=== PATIENT | female | born 1975 | race Caucasian/White ===

== ENCOUNTER 2021-04-07 15:00 | Outpatient (CLI) | payer OTHER, SELFPAY ==
--- NOTE | ~2021-04-07 | MM_ITS ---
EXAMINATION: MM screening jaret BI w radha HISTORY: Screening mammogram, family history of breast cancer in her mother. TECHNIQUE: Craniocaudal and mediolateral oblique 3-D tomosynthesis images were obtained and synthetic 2-D images were generated. CAD analysis was submitted and interpreted. COMPARISON: 04/01/2018, 09/25/2017, 03/22/2017, 03/08/2017 BREAST PARENCHYMAL COMPOSITION: The breasts are extremely dense, which lowers the sensitivity of mamm ography. FINDINGS: There are multiple similar appearing bilateral breast masses, previously characterized as c ysts. There is no evidence of suspicious mass, calcification, or architectural distortion to suggest malignancy in either breast. There has been no suspicious interval change. IMPRESSION: 1. No mammographic evidence of malignancy. 2. Recommend routine screening mammography in one year. BI-RADS Category 2: Benign finding(s). Reviewed, dictated and finalized at location A.
== END 2021-04-07 15:01 | disposition home or self-care (01) ==
LOC: ANHIMG 15:03
PROVIDERS: PCP Internal Medicine; Visit Provider Obstetrics & Gynecology
DX: Z12.31 Encounter for screening mammogram for malignant neoplasm of breast (principal)
CPT/HCPCS: 77063; 77067

== ENCOUNTER 2022-02-25 08:44 | Emergency (ER) | payer OTHER, SELFPAY ==
--- NOTE | 2022-02-25 08:48 | ED.SKABFB ---
HPI - Skin/Abscess/Foreign Bdy General Chief complaint: Extremity Problem,Nontraumatic Stated complaint: Skin Sore/Finger Time Seen by Provider: 02/25/22 08:48 Source: patient and RN notes reviewed History of Present Illness HPI narrative: Patient is a 46-year-old female who presents the urgent care with complaints of a skin sore to the nailbed of the left ring finger. Patient states has been there approximately 2 days. Denies of any injury. States that she has been soaking it in Epson salt. Denies any fevers. No other acute complaints. No acute distress noted. Patient aware of the plan of care. Some parts of this dictation were generated by voice recognition software and may contain typographical and/or grammatical inaccuracies. Related Data Home Medications Medication Instructions Recorded Confirmed fluoxetine 40 mg capsule cap 02/25/22 Allergies Allergy/AdvReac Type Severity Reaction Status Date / Time No Known Allergies Allergy Unknown Verified 02/25/22 08:58 Review of Systems Review of Systems: CONSTITUTIONAL: Denies fever, chills, or sweats. EYES: Denies visual changes, redness, or discharge. ENT: Denies rhinorrhea, congestion, sore throat, or otalgia. CARDIOVASCULAR: Denies chest pain, palpitations, or edema. RESPIRATORY: Denies cough or dyspnea. GASTROINTESTINAL: Denies abdominal pain, nausea, vomiting, or diarrhea. GENITOURINARY: Denies dysuria or hematuria. SKIN: Reports of a skin sore to the left ring finger MUSCULOSKELETAL: Denies back pain, joint pain, or myalgia. NEUROLOGIC: Denies headache, numbness, or weakness. All other systems reviewed are negative, except as documented in HPI. [facility] Family History Family History (Updated 03/10/16 @ 23:19 by DOCTOR UNKNOWN) Father Family history of diabetes mellitus in first degree relative Social History Social History Smoking status: Never smoker Alcohol intake: current Comments At the time of my signature, I reviewed and agree with the nursing past medical, surgical, social, and family history. There is no relevant family history pertinent to the patient complaint. Exam Narrative: GENERAL: This is a well-nourished, well-developed patient, in no apparent distress. HEAD: normocephalic, atraumatic. EYES: PERRL. Sclera clear/white. Vision is grossly intact. EARS: External ears normal NOSE: External nose normal with no obvious nasal discharge, nares without redness, no rhinorrhea. THROAT: Mucous membranes moist, posterior pharynx clear. NECK: Neck supple SKIN: Edematous, erythemic tender paronychia to the nailbed and the ulnar aspect of the left ring finger NEURO: awake, alert, and oriented to person, place and time. There were no obvious focal neurologic abnormalities. EXTREMITIES: No clubbing, cyanosis, or edema. BACK: Nontender without deformity or crepitance. No flank tenderness. Course Course Level of Care: Express Care Visit Vital Signs Vital signs: Vital Signs Temperature 98.4 F 02/25/22 08:50 Pulse Rate 83 02/25/22 08:50 Respiratory Rate 16 02/25/22 08:50 Blood Pressure 108/80 02/25/22 08:50 Pulse Oximetry 99 02/25/22 08:50 Oxygen Delivery Room Air 02/25/22 08:50 Temperature 98.4 F 02/25/22 08:50 Pulse Rate 83 02/25/22 08:50 Respiratory Rate 16 02/25/22 08:50 Blood Pressure 108/80 02/25/22 08:50 Pulse Oximetry 99 02/25/22 08:50 Oxygen Delivery Room Air 02/25/22 08:50 Reviewed Procedures Other Procedure Procedure 1: Other Procedure: Edematous/erythemic paronychia to the left ring finger near the base of the nailbed and the ulnar aspect. Incised with an 18-gauge needle after Betadine wash. Cleanse post procedure with Technicare normal saline. Added Neosporin and tube gauze. Patient tolerated well. Procedure successful with yellow serosanguineous and bloody drainage. MDM - Skin/Abscess/Foreign Bdy MDM Narrative Medical decision making narrative: Advised the pa
[2022-02-25 08:50] VITALS: BP 108/80; PULSE 83; RESP 16; TEMP 36.9; O2SAT 99
== END 2022-02-25 09:43 | disposition home or self-care (01) ==
PROVIDERS: Emergency Provider Nurse Practitioner Family; PCP Internal Medicine
DX: L03.012 Cellulitis of left finger (principal)
CPT/HCPCS: 10060; 99213; G0463

== ENCOUNTER 2022-11-21 14:12 | Outpatient (CLI) | payer OTHER, SELFPAY ==
--- NOTE | ~2022-11-21 | MM_ITS ---
EXAMINATION: MM screening jaret BI w radha HISTORY: Screening mammogram TECHNIQUE: Craniocaudal and mediolateral oblique 3-D tomosynthesis images were obtained and synthetic 2-D images were generated. Bilateral rotated lateral CC views. CAD analysis was submitted and interp reted. COMPARISON: 04/07/2021 bilateral screening mammogram 04/01/2018 diagnostic mammography and bilateral complete breast ultrasound examination BREAST PARENCHYMAL COMPOSITION: The breasts are extremely dense, which lowers the sensitivity of mamm ography. FINDINGS: Occasional benign calcifications. There is no evidence of suspicious mass, calcification, o r architectural distortion to suggest malignancy in either breast. There has been no suspicious inter mara change. IMPRESSION: 1. No mammographic evidence of malignancy. 2. Recommend routine screening mammography in one year. Reviewed, dictated and finalized at location A.
== END 2022-11-21 14:13 | disposition home or self-care (01) ==
PROVIDERS: PCP Internal Medicine; Visit Provider Obstetrics & Gynecology
DX: Z12.31 Encounter for screening mammogram for malignant neoplasm of breast (principal)
CPT/HCPCS: 77063; 77067

== ENCOUNTER 2023-10-06 16:04 | Emergency (ER) | payer OTHER, SELFPAY ==
[2023-10-06 16:08] VITALS: BP 101/69; PULSE 87; RESP 20; TEMP 36.6; O2SAT 98
--- NOTE | 2023-10-06 16:17 | ED.URI ---
HPI - URI/Sore Throat General Chief Complaint: Upper Respiratory Infection Stated Complaint: throat/ears/head Time Seen by Provider: 10/06/23 16:17 Source: patient, RN notes reviewed and old records reviewed Mode of arrival: ambulatory Limitations: no limitations History of Present Illness HPI Narrative: 48 year old female who presents to [facility] with complaints of sinus congestion, sore throat, bilateral ear pain, and headache for the past few days. Patient reports that she has not had any known fevers, chills or sweat, or any body ache. Patient reports no shortness of breath, no diarrhea or any nausea or vomiting. Patient has not taken any OTC medications for her symptoms. MD elicited complaint: sore throat ( ear pain, headache), rhinorrhea, nasal congestion and other (headache) Pertinent past history: other (tonsillectomy) Onset (ago): day(s) (2) Pain scale (0-10): 5 Able to tolerate fluids by mouth: Yes Treatments prior to arrival: none Related Data Allergies Allergy/AdvReac Type Severity Reaction Status Date / Time No Known Allergies Allergy Unknown Verified 02/25/22 08:58 Review of Systems Review of Systems: CONSTITUTIONAL: Denies malaise, chills, sweats, or fever. EYES: Denies visual changes, redness, or discharge. ENT: Reports rhinorrhea, congestion, sinus pain,bilateral otalgia and sore throat. CARDIOVASCULAR: Denies chest pain, palpitations, or edema. RESPIRATORY: Reports no cough.? Denies dyspnea. GASTROINTESTINAL: Denies abdominal pain, nausea, vomiting, diarrhea SKIN: Denies rash or itching. MUSCULOSKELETAL: Denies myalgia. NEUROLOGIC: Reports headache. All systems reviewed & are unremarkable except as noted in HPI and below PMFSH Past Medical History Medical History (Updated 10/08/23 @ 10:28 by Sera Flores NP) Fracture of left foot Surgical History Surgical History (Updated 10/08/23 @ 10:28 by Sera Flores NP) H/O right knee surgery History of endometrial ablation History of tubal ligation Hx of tonsillectomy Family History Family History (Updated 03/10/16 @ 23:19 by DOCTOR UNKNOWN) Father Family history of diabetes mellitus in first degree relative Social History Social History (Updated 10/08/23 @ 10:29 by Sera Flores NP) Smoking status: Never smoker Alcohol intake: current Alcohol use details: social Substance use type: does not use Living arrangements: with family Gender identity (if verbalized by the patient): Female Comments At time of signature, agree with nursing past medical, surgical, social and family history. There is no relevant family history pertinent to the presenting complaint Exam Narrative: GENERAL: Well-appearing, well-nourished, and in no acute distress. HEAD: Normocephalic EYES: PERRLA, conjunctivae clear ENT: Nares clear, turbinates edematous and erythematous, clear discharge, headache discomfort voiced.. Mucous membranes moist. TM pearly caldera with dull light reflex bilaterally; no tragal tenderness. Oropharynx erythematous without lesions. Tonsils not present, throat without exudate, no drooling, no hoarseness, no trismus, uvula midline. NECK: Supple. No lymphadenopathy CHEST: Clear to auscultation, breath sounds equal. No wheezing, rhonchi, rales, or stridor. No respiratory distress, speaks in full sentences.no cough noted SAO2 98% on room air HEART: Regular rate and rhythm. No murmur heard. SKIN: Warm, dry, no rash. NEURO: Alert and oriented x3. PSYCH: Normal mood and affect Course Course Emergency Course: Patient is aware of diagnosis, understands and agrees to treatment plan.? Anticipatory guidance given.? Patient agrees to follow-up as directed and is aware of reasons to seek care at the emergency department. Portions of this record may have been created with voice recognition software Level of Care: Express Care Visit Vital Signs Vital signs: Vital Signs Temperature
== END 2023-10-06 16:47 | disposition home or self-care (01) ==
PROVIDERS: Emergency Provider Registered Nurse; PCP Family Medicine
DX: J06.9 Acute upper respiratory infection, unspecified (principal)
CPT/HCPCS: 87081; 87880; 99213; G0463

== ENCOUNTER 2024-02-18 07:18 | Outpatient (CLI) | payer OTHER, SELFPAY ==
--- NOTE | ~2024-02-18 | MM_ITS ---
EXAMINATION: MM screening jaret BI w radha HISTORY: Screening TECHNIQUE: Craniocaudal and mediolateral oblique 3-D tomosynthesis images were obtained and synthetic 2-D images were generated. CAD analysis was submitted and interpreted. COMPARISON: Comparison to multiple prior studies sequentially, with oldest reviewed study dated 03/08. BREAST PARENCHYMAL COMPOSITION: Dense: The breasts are extremely dense, which lowers the sensitivity of mammography. FINDINGS: The right breast is stable without evidence for malignancy. There are developing masses in the upper aspect of the left breast. IMPRESSION: 1. Developing left breast masses. 2. Additional mammographic views and possible breast ultrasound are recommended. BI-RADS Category 0: Incomplete: Needs additional imaging evaluation. Reviewed, dictated and finalized at location B. IMPRESSION: 1. Developing left breast masses. 2. Additional mammographic views and possible breast ultrasound are recommended . BI-RADS Category 0: Incomplete: Needs additional imaging evaluation.
== END 2024-02-18 07:19 | disposition home or self-care (01) ==
LOC: ANHIMG 07:22
PROVIDERS: Visit Provider Obstetrics & Gynecology
DX: Z12.31 Encounter for screening mammogram for malignant neoplasm of breast (principal); N63.20 Unspecified lump in the left breast, unspecified quadrant
CPT/HCPCS: 77063; 77067

== ENCOUNTER 2024-03-06 11:28 | Outpatient (CLI) | payer OTHER, SELFPAY ==
--- NOTE | ~2024-03-06 | MMUS_ITS ---
EXAMINATION: MM diagnostic jaret LT w radha, US breast LT complete HISTORY: Follow-up left breast asymmetries TECHNIQUE: Additional 3-D tomosynthesis images of the left breast were performed and synthetic 2-D im ages were generated. CAD analysis was submitted and interpreted. High resolution complete left breast ultrasound was performed. COMPARISON: Comparison to multiple prior studies sequentially, with oldest reviewed study dated 04/01. BREAST PARENCHYMAL COMPOSITION: Dense: The breasts are extremely dense, which lowers the sensitivity of mammography. FINDINGS: MAMMOGRAPHIC FINDINGS: There are multiple obscured masses predominantly located superiorly in the left breast. There is no a rchitectural distortion or suspicious calcifications. ULTRASOUND: Complete US of all 4 quadrants of the left breast and retroareolar region was reviewed. At 12:00, 1 cm from the nipple, there is a oval septated cyst measuring 7 mm. At 12:00 near the nippl e there is a 2.2 cm simple cyst. At 12:30, 3 cm from the nipple there is a 2.2 cm simple cyst. At 1:0 0, 3 cm from the nipple there is an oval hypoechoic parallel oriented mass measuring 4 mm without int ernal vascularity or posterior features, likely benign. At 5:00 near the nipple there is a small cyst . At 7:00, 5 cm from the nipple, there is an oval hypoechoic 5 mm mass with parallel orientation, no posterior features and no internal vascularity, likely benign. At 7:00, 2 cm from the nipple, there i s a cluster of cysts measuring up to 1 cm in aggregate. At T10-11 o'clock, 4 cm from the nipple there is a septated cyst measuring up to 4.5 cm. IMPRESSION: 1. Multiple benign masses of the left breast. There are masses located at 1:00, 3 cm from the nipple measuring 4 mm, 7:00, 5 cm from the nipple measuring 5 mm, likely benign. 2. Recommend 6 month follow-up Limited left breast ultrasound BI-RADS category 3, probably benign findings. Reviewed, dictated and finalized at location B. IMPRESSION: 1. Multiple benign masses of the left breast. There are masses located at 1:00, 3 cm from the nipple measuring 4 mm, 7:00, 5 cm from the nipple measuring 5 mm , likely benign. 2. Recommend 6 month follow-up Limited left breast ultrasound BI-RADS category 3, probably benign findings.
== END 2024-03-06 11:29 | disposition home or self-care (01) ==
PROVIDERS: PCP Obstetrics & Gynecology; Visit Provider Obstetrics & Gynecology
DX: R92.8 Other abnormal and inconclusive findings on diagnostic imaging of breast (principal)
CPT/HCPCS: 76641; 77061; 77065; G0279

== ENCOUNTER 2024-08-12 11:19 | Outpatient (CLI) | payer OTHER, SELFPAY ==
[2024-08-12 18:33] LABS: Alanine Aminotransferase 27 U/L (6-35); Albumin Level 4.5 g/dL (3.5-5.1); Alkaline Phosphatase 97 U/L (38-126); Aspartate Amino Transferase 60 U/L (14-36); Bilirubin,Total 0.6 mg/dL (0.2-1.3); Cholesterol 201 mg/dL (0-200); HDL Direct 54 mg/dL; Triglycerides 107 mg/dL (<150)
[2024-08-12 18:44] LABS: LDL Cholesterol Direct 109 mg/dL
== END 2024-08-12 11:20 | disposition home or self-care (01) ==
LOC: ANHBWCLAB 11:20
PROVIDERS: PCP Nurse Practitioner Adult Health; Visit Provider Nurse Practitioner Adult Health
DX: E78.5 Hyperlipidemia, unspecified (principal)
CPT/HCPCS: 36415; 80061; 80076

== ENCOUNTER 2024-09-10 13:34 | Outpatient (CLI) | payer OTHER, SELFPAY ==
--- NOTE | ~2024-09-10 | US_ITS ---
US breast LT limited 09/10/2024 14:09 Indication: Follow-up left breast masses Procedure: High-resolution Limited ultrasound of the left breast Comparison: 03/06/2024 Findings: At 1:00, 3 cm from the nipple there is an oval hypoechoic mass measuring 4 x 3 x 3 mm with slightly increased echogenicity compared with prior study although the size is unchanged. No signific ant posterior features or internal vascularity. At 7:00, 5 cm from the nipple there is a 7 mm simple cyst. Impression: 1: No significant change to left breast masses. BI-RADS CATEGORY 3-PROBABLY BENIGN FINDING RECOMMENDATION: Six-month follow-up bilateral mammogram and Limited left breast ultrasound recommende d. Reviewed, dictated and finalized at location A. UREMENT ACCOUNTANT Impression: 1: No significant change to left breast masses. BI-RADS CATEGORY 3-PROBABLY BENIGN FINDING RECOMMENDATION: Six-month follow-up bilateral mammogram and Limited left breast ultrasound recommended.
--- OUTSIDE RECORDS SUMMARY | 2024-09-10 14:29 | XMS_ITS | Clinical Summary ---
Author Organization [facility] Address [address] [place] [address]. [place], [place] [address] [place] [id number] Care Team Providers Care Manager Msw Name Role Phone Robert Holt MD Primary Care Provider [phone] Allergies No known active allergies Medications FLUoxetine (PROZAC) 40 MG capsule 3 Active cephALEXin (KEFLEX) 500 MG capsuleIndicatio ns:Umbilical hernia without obstruction or gangrene Take 1 capsule (500 mg total) by mouth 2 (two) times daily. 14 capsule 3 Active Additional Information Patient not taking.Reported on 01/18/2023 Active Problems Problem Noted Date Diagnosed Date Umbilical hernia without obstruction or gangrene 11/07/2022 Overview (11/07/2022): Added automatically from request for surgery [id number] Immunizations Name Administration Dates Next Due Tdap (Generic) 12/19/2012 Family History Medical History Relation Comments Diabetes Father Relation Status Comments Father Social History Tobacco Use Types Packs/Day Years Used Date Smoking Tobacco: Never Smokeless Tobacco: Never Tobacco Cessation:Counseling Given: Not Answered Comments:Counseled by Dr Holt Alcohol Use Standard Drinks/Week Comments Yes 1.7 (1 standard drink = 0.6 oz p ure alcohol) socially PHQ-2 Answer Date Recorded Patient Health Questionnaire-2 Score 0 11/27/2022 Comments No Sex and Gender Information Value Date Recorded Sex Assigned at Not on file 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 Gender Identity Not on file Sexual Orientation Not on file Last Filed Vital Signs Vital Sign Reading Time Taken Comments Blood Pressure 109/70 02/01/2023 2:11 PM CDT Pulse 75 02/01/2023 2:11 PM CDT Temperature 36.7 ??C (98 ??F) 02/01/2023 2:11 PM CDT Respiratory Rate 20 02/01/2023 2:11 PM CDT Oxygen Saturation 98% 02/01/2023 2:11 PM CDT Inhaled Oxygen Concentration - - Weight 61.2 kg (135 lb) 02/01/2023 2:11 PM CDT Height 157.5 cm (5' 2 ) 02/01/2023 2:11 PM CDT Body Mass Index 24.69 02/01/2023 2:11 PM CDT Plan of Treatment Health Maintenance Due Date Last Done Comments Cervical Cancer Screening Pa p Smear (Age 30 to 64) Every 3 Years 1973 Hepatitis B Vaccines (1 of 3 - 19+ 3-dose series) 1992 Cervical Cancer Screening Pa p with HPV Testing (Age 30 to 64) Every 5 Years 2003 Cervical Cancer Screening wi th HPV 2003 Mammogram Screening 2013 DTaP, Tdap and Td Vaccines ( 2 - Td or Tdap) 12/19/2022 12/19/2012 Zoster Vaccines (1 of 2) 2023 Annual Physical 11/28/2023 11/27/2022 PHQ-2 (Physician [place]) 11/28/2023 11/27/2022 COVID-19 Vaccine (3 - 2023-2 5 season) 2024 10/13/2020, 09/15/2020 Influenza Adult (#1) 2024 PHQ-2 (Physician Gr[place]stone) 08/13/2024 11/27/2022 Colorectal Cancer Screening FIT-DNA (3 Years) 12/31/2025 12/31/2022, 12/31/2022 Hepatitis C Completed 11/27/2022 Meningococcal B Vaccine Aged Out No l onger eligible based on patient's age to complete this topic Meningococcal Vaccine Aged Out No ricardo darlene eligible based on patient's age to complete this topic Pneumococcal Vaccine: Pediatrics (0 to 5 Years) and At-Risk Patients (6 to 64 Years) Aged Out No longer eligible b ased on patient's age to complete this topic RSV Immunizations Under 20 Months Aged Out No longer eligible b ased on patient's age to complete this topic Medical Devices Implanted Type Area Mail Processing Machine Operator Device Identifier Shelf Expiration Date Model / Serial / Lot Mesh Ventralex Small With Strap [id number] - [id number] Implanted:Qty : 1 on 12/07/2022 by Phani Arrieta MD at [facility] Mesh N/A: Abdomen [employer] [id number] 06/09/2023 [id number] / / [id number] Procedures Procedure Name Priority Date/Time Associated Diagnosis Comments COLOGUARD (EXACT SCIENCE) Routine 12/31/2022 3:10 PM CDT Screen for colon cancer HEPATITIS C ANTIBODY Routine 11/27/2022 7:48 AM CDT Annual physical exam General medical exam Encounter for hepatitis C screening test for low risk patient from Last 3 Months or Most Recently Relevant to Health Maintenance Results * COLOGUARD (EXACT SCIENCE) (12/31/2022 3:10 PM CDT) COLOGUARD RESULT Negative Negative [facility] (CLIA #:[id number]) Comment: NEGATIVE TEST RESULT. A negative Cologuard result indicates a low likelihood that a colorectal cancer (CRC) or advanced adenoma (adenomatous polyps with more advanced pre-malignant features) ??is present. The chance that a person with a negative Cologuard test has a colorectal cancer is less than 1 in 1500 (negative predictive value >99.9%) or has an ??advanced adenoma is less than ??5.3% (negative predictive value 94.7%). These data are based on a prospective cross-sectional study of 10,000 individuals at average risk for colorectal cancer who were screened with both Cologuard and colonoscopy. (Chava Barry al, N Engl J Med 2014;370(14):1286- 1297) The normal value (reference range) for this assay is negative. COLOGUARD RE-SCREENING RECOMMENDATION: Periodic colorectal cancer screening is an important part of preventive healthcare for asymptomatic individuals at average risk for colorectal cancer. ??Following a negative Cologuard result, the [employer] [employer] Society and U.S. Multi-Society Task Force screening guidelines recommend a Cologuard re-screening interval of 3 years. References: [employer] [employer] Guideline for Colorectal Cancer Screening: https://www.cancer.org/cancer/emtir-dyuvgg-ppxjxp/ngokagcal-lcirwacfc-szavrqy/ac s-rec ommendations.html.; Aries DK, Jocelynn CR, Carlos HaynesK, Colorectal Cancer Screening: Recommendations for Physicians and Patients from the U.S. Multi-Society Task Force on Colorectal Cancer Screening , Am J Gastroenterology 2017; 112:2405-3248. TEST DESCRIPTION: Composite algorithmic analysis of stool DNA-biomarkers with hemoglobin immunoassay. ?? Quantitative values of individual biomarkers are not reportable and are not associated with individual biomarker result reference ranges. Cologuard is intended for colorectal cancer screening of adults of either sex, 45 years or older, who are at average-risk for colorectal cancer (CRC). Cologuard has been approved for use by the U.S. FDA. The performance of Cologuard was established in a cross sectional study of average-risk adults aged 50-84. Cologuard performance in patients ages 45 to 49 years was estimated by sub-group analysis of near-age groups. Colonoscopies performed for a positive result may find as the most clinically significant lesion: colorectal cancer [4.0%], advanced adenoma (including sessile serrated polyps greater than or equal to 1cm diameter) [20%] or non- advanced adenoma [31%]; or no colorectal neoplasia [45%]. These estimates are derived from a prospective cross-sectional screening study of 10,000 individuals at average risk for colorectal cancer who were screened with both Cologuard and colonoscopy. (Chava Barry al, N Engl J Med 2014;370(14):6368-6956.) Cologuard may produce a false negative or false positive result (no colorectal cancer or precancerous polyp present at colonoscopy follow up). A negative Cologuard test result does not guarantee the absence of CRC or advanced adenoma (pre-cancer). The current Cologuard screening interval is every 3 years. ([employer] [employer] Society and U.S. Multi-Society Task Force). Cologuard performance data in a 10,000 patient pivotal study using colonoscopy as the reference method can be accessed at the following location: www.[employer].com/results. Additional description of the Cologuard test process, warnings and precautions can be found at www.colGI Dynamicsrd.com. STOOL STOOL SPECIMEN / Unknown 12/31/2022 3:10 PM CDT 01/02/2023 3:42 PM CDT us Robert Holt MD BODY FLUIDS AND STOOLS ORDERABLE S Final Result Performing Organization Address [facility] Co de Phone Number [email or web address], [employer] [address] [place] [address], [email or web address] (CLIA #:[id number]) [address] [place] [address] * HEPATITIS C ANTIBODY (11/27/2022 7:48 AM CDT) HEPATITIS C AB NON-REACTI VE NON-REACT ZEYAD 11/27/2022 7:00 PM CDT [facility] Comment: ANTIBODIES TO HCV NOT DETECTED. DOES NOT EXCLUDE THE POSSIBILITY OF EXPOSURE TO HCV. 11/27/2022 7:48 AM CDT us Robert Holt MD LABORATORY Final Result Performing Organization Address [facility] de Phone Number [facility] [address] [address], [place] [phone] [id number] from Last 3 Months or Most Recently Relevant to [place] [address] [facility] Care Teams Manager Msw Relationship Specialty Start Date End Date Robert Holt MD [address] [address] PCP - General INTERNAL MEDICINE 09/26/22
--- OUTSIDE RECORDS SUMMARY | 2024-09-10 14:29 | XMS_ITS | Encounter Summary ---
Author Organization [facility] Address [address] [place] [address]. [place], [place] [id number] [place] [address] Care Team Providers Care Chassis Mechanic Name Role Phone Robert Holt MD Primary Care Provider [phone] Encounter Details Date Type Department Care Team (Late st Contact Info) Description 11/29/2022 Mobilepolice Message Enc [facility] - [address] [address] [address] [place] [address] [facility], [facility] Provider Lab results Social History Tobacco Use Types Packs/Day Years Used Date Smoking Tobacco: Never Smokeless Tobacco: Never Comments:Counseled by Dr Gail daily Alcohol Use Standard Drinks/Week Comments Yes 1.7 (1 standard drink = 0.6 oz p ure alcohol) socially PHQ-2 Answer Date Recorded Patient Health Questionnaire-2 Score 0 11/27/2022 Comments No Sex and Gender Information Value Date Recorded Sex Assigned at Not on file 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 No / Unsure 11/28/2022 3:05 PM CDT documented as of this encounter Plan of Treatment Not on file documented as of this encounter Visit Diagnoses Not on filedocumented in this encounter Care Teams Chassis Mechanic Relationship Specialty [place] [address] [place] [address] [address] [place] [address] PCP - General INTERNAL MEDICINE 09/26/22 documented as of this encounter
--- OUTSIDE RECORDS SUMMARY | 2024-09-10 14:29 | XMS_ITS | Encounter Summary ---
Author Organization [facility] Address [address] [place] [address]. [place], [place] [id number] [place] [address] Care Team Providers Care Interlocking Installer Name Role Phone Robert Holt MD Primary Care Provider [phone] Encounter Details Date Type Department Care Team (Late st Contact Info) Description 11/27/2022 Prep for Procedure [facility] [address] [place] [address] [place] [address] [facility] [address] [place] [address] Social History Tobacco Use Types Packs/Day Years [...] on file Legal Sex Female 8:53 AM HEADER UP Gender Identity Not on file Sexual Orientation Not on file COVID-19 Exposure Response Date Recorded In the last 10 days, have yo u been in contact with someone who was confirmed or suspected to have Coronavirus/COVID-19? No / Unsure 11/28/2022 3:05 PM CDT documented as of this encounter Plan of Treatment Not on file documented as of this encounter Results * MRSA SCREENING (11/28/2022 3:37 PM CDT) SPEC DESCRIPTION NASAL 11/28/2022 3:09 PM CDT [facility] SPECIAL REQUESTS NO SPECIAL REQUEST 11/28/2022 3:09 PM CDT [facility] CULTURE RESULT NO MRSA ISOLATED 11/29/2022 4:05 PM CDT [facility] SPECIMEN FROM INTERNAL NOSE / Unknown 11/28/2022 3:37 PM CDT 11/28/2022 3:38 PM CDT us Phani Arrieta MD MICROBIOLOGY - GENERAL ORDERABLE S Final Result [facility] [address] [place] [id number], documented in this encounter Visit Diagnoses Diagnosis Preop testing- Primary Preoperative examination, unspecified documented in this encounter Care Teams Interlocking Installer Relationship Specialty Start Date End Date oRbert Holt MD [address] [address] PCP - General INTERNAL MEDICINE 09/26/22 documented as of this encounter
== END 2024-09-10 13:35 | disposition home or self-care (01) ==
PROVIDERS: PCP Nurse Practitioner Adult Health; Visit Provider Obstetrics & Gynecology
DX: R92.8 Other abnormal and inconclusive findings on diagnostic imaging of breast (principal)
CPT/HCPCS: 76642

== ENCOUNTER 2025-01-08 08:55 | Outpatient (CLI) | payer OTHER, SELFPAY ==
--- OUTSIDE RECORDS SUMMARY | 2025-01-08 09:04 | XMS_ITS | Data Portability ---
Author Organization [facility] Address [address] [place] [address] Assessment Encounter Date Assessment Date Assessment LastModified by Organization Details LastModified Time 12/01/2024 12/01/2024 I spent 45 minutes of [id number] counselling and care coordination time with the patient. This includes reviewing medical records (medical, surgical, family and social history); updating medication and allergy information in the electronic health record; and ordering labs, medications, and education materials to continue patient care. [email or web address] Not available 12/01/2024 14:06:04 12/26/2024 12/26/2024 I spent 15 minutes of [id number]-[id number] counselling and care coordination time with the patient. This includes reviewing medical records (medical, surgical, family and social history); updating medication and allergy information in the electronic health record; and ordering labs, medications, and education materials to continue patient care. Not available 12/26/2024 16:05:35 Plan of Treatment Reminders Order Date Submit Date Provider Last Modified By Organization Details Last Modified Time Details Appointments [id number] 2024 11:30A M ALISA KIRBY APRN Not available Not available Not available Lab None recorded. Referral None recorded. Procedures None recorded. Surgeries None recorded. Imaging None recorded. Medication Orders estradiol 0.075 mg/24 hr semiweekl y transderm al patch 2024 025 [id number], [address], [place], [place], [id number], 12/26/2024 15:23:17 progester one micronize d 100 mg capsule 2024 025 [facility] #[id number], [address], [place], [place], [id number], 12/26/2024 15:23:19 Vagifem 10 mcg vaginal tablet 2024 [facility] #[id number], [address], [place], [place], [id number], 12/26/2024 15:23:16 Estrace 0.01% (0.1 mg/gram) vaginal cream 2024 [facility] #[id number], [address], [place], [place], [id number], 12/26/2024 15:22:59 estradiol 0.05 mg/24 hr semiweekl y transderm al patch 2024 [facility] #[id number], [address], [place], [place], [id number], 12/01/2024 14:16:49 progester one micronize d 100 mg capsule 2024 [id number], [address], [place], [place], [id number], 12/01/2024 14:16:51 Patient TargetsNo targets recorded. Patient Instructions Encounter Date Encounter Id Patient Instructions Last Modified By Organization Details Last Modified Time 12/01/2024 [id number] Any requested follow-up visits are listed below in the Plan of Care section. Go directly to the [facility] at [email or web address] to book a time. [email or web address] Not available 12/01/2024 14:00:56 It was a pleasur e to meet with you today! We discussed your health concerns related to menopause, including vaginal dryness, mood changes, and low libido. Your Care Plan Together, we decided that you would: - Start using an estrogen vaginal cream every night for 2 weeks, then reduce to twice a week. This will help with vaginal dryness and thinning of the vaginal wall. - Begin hormone replacement therapy (HRT) with a transdermal estrogen patch (0.05 mg). Apply the patch to your lower abdomen or buttock twice a week, changing it on two specific days each week. - Start taking oral progesterone capsules (100 mg) at bedtime every night to help with sleep. If you do not notice significant improvement in your sleep, we can adjust the dosage during your follow-up appointment. - Keep up with your annual mammograms to monitor your breast health, especially given your family history of breast cancer. - Schedule a follow-up appointment in four weeks to assess how the treatment is working for you. Your next appointment is on January 02 at 2:00 PM. We discussed the benefits of HRT, including improved libido, weight management, energy levels, and mood stabilization. HRT also offers protective benefits for bone health and has anti-inflammatory properties that can help with aches, pains, and brain health. Potential side effects of HRT include PMS-like symptoms such as breast tenderness, cramping, breakthrough bleeding, and mood changes. These are usually temporary as your body adjusts to the hormones. Severe side effects are rare but can include shortness of breath, chest pain, or severe pain in a limb. Your individual risk for these severe side effects is very low. Please carefully review the care plan we have agreed upon above, which includes specific information about your menopause treatment and other important details about your overall care. Thank you for trusting us with your care! Not available 12/01/2024 14:25:52 12/26/2024 [id number] Any requested follow-up visits are listed below in the Plan of Care section. Go directly to the [facility] at [email or web address] to book a time. [email or web address] Not available 12/26/2024 15:18:20 It was a pleasur e to meet with you today! We discussed your ongoing symptoms and concerns related to estrogen absorption, weight, and vaginal dryness. Your Care Plan Together, we decided that you would: - Increase the dosage of your estrogen patch to 0.075 mg. - Continue taking one progesterone pill at bedtime. - Discontinue the vaginal cream and start using Vagifem tablets instead. - Check your weight on the day of your next visit. - Schedule a follow-up appointment in 4 weeks with one of our nurse practitioners. Please carefully review the care plan we have agreed upon above, which includes specific information about your medication adjustments and other important details about your overall care. Thank you for trusting us with your care! [email or web address] Not available 12/26/2024 16:06:45 Reason for Referral None Reported. Problems Name Problem SNOMED Code Status Onset Date Resolution Date Notes Provider Name and Address Organization Details Recorded Time Menopausal symptom 20932458 Active 2024 ALISA KIRBY [place] [address] [place], [address], [facility] 5 15:18:47 Genitourina ry syndrome of menopause [id number] 9104 Active 2024 ALISA KIRBY APRN [address] [place], [address], [facility] 5 14:09:16 Problem Notes None recorded. Procedures Surgical History Date Name Laterality Status Provider Name and Address Organization Details Recorded Time 5 Date of Last Mammogram completed ALISA KIRBY APRN [address] [place], , [facility] 12/01/2024 14:03:43 5 Date of Last Pap Smear completed ALISA KIRBY APRN [address] [place], , [facility] 12/01/2024 14:03:43 4 Date of Last Colonoscopy completed ALISA KIRBY APRN [address] [place], , [facility] 12/01/2024 14:03:43 4 Endometrial Ablation completed ALISA KIRBY APRN [address] [place], , [facility] 12/01/2024 14:05:11 ligation of bilateral fallopian tubes completed ALISA KIRBY APRN [address] [place], , [facility] 12/01/2024 14:05:20 Imaging Results None recorded. Procedure Notes None recorded. Medical Equipment None Reported. Allergies No known drug allergies Medications Name Sig Start Date Stop Date Status Note LastModified by Organization Details LastModified Time fluoxetine 40 mg capsule TAKE 1 CAPSULE BY MOUTH DAILY active Not Available Not Available No t Available estradiol 0.075 mg/24 hr semiweekly transdermal patch Apply 1 patch twice a week by transderm al route for 28 days. 2024 active Not Available Not Available Not Reji [facility] azithromyci n 250 mg tablet TAKE 2 TABLETS BY MOUTH ON DAY 1 THEN TAKE 1 TABLET BY MOUTH DAILY FOR FOR 4 MORE DAYS active Not Available Not Available No t Available estradiol 0.05 mg/24 hr semiweekly transdermal patch APPLY 1 PATCH TOPICALLY TO THE SKIN 2 TIMES A WEEK active Not Available Not Available No t Available gabapentin 100 mg capsule TAKE 1 CAPSULE BY MOUTH EVERY DAY AT BEDTIME active Not Available Not Available No t Available estradiol 0.01% (0.1 mg/gram) vaginal cream APPLY TO VULVA AND VAGINA 1 GM NIGHTLY FOR 2 WEEKS THEN REDUCE TO TWO TO THREE TIMES PER WEEK THEREAFTE R 12/26 completed Not Available Not Available Not Available progesteron e micronized 100 mg capsule Take 1 capsule every day by oral route for 28 days. 2024 active Not Available Not Available Not Reji castillo amoxicillin 500 mg-potassiu m clavulanate 125 mg tablet TAKE 1 TABLET BY MOUTH EVERY 12 HOURS FOR 10 DAYS active Not Available Not Available No t Available rosuvastati n 5 mg tablet TAKE 1 TABLET BY MOUTH EVERY EVENING active Not Available Not Available No t Available estradiol 10 mcg vaginal tablet INSERT ONE TABLET IN THE VAGINA FOR 14 DAYS THEN DECREASE TO TWICE A WEEK THEREAFTE R active Not Available Not Available No t Available Vitals Date Recorded Body height Body mass index (BMI) Body weight Provider Name and Address Organization Details Last Updated DateTime 12/01/2024 157.48 cm 22.9 kg/m2 29579.05 g ALISA KIRBY, BOX P[employer]ER [address] [place], [address], [facility] 12/01/2024 14:03:57 Date Recorded Body height Body mass index (BMI) Body weight Provider Name and Address Organization Details Last Updated DateTime 12/26/2024 157.48 cm 22.9 kg/m2 38183.05 g ALISA KIRBY APRN [address] [place], [address], [facility] 12/26/2024 15:19:01 Social History None recorded. Functional Status Question Answer Note LastModified by Organizat ion Details LastModified Time How many times per week do you consume alcohol? 3-4 times per week [email or web address] Information not available 12/01/2024 What is your level of alcohol consumption? Occasional Information not available 12/01/2024 Mental Status None recorded. Family History Relationship Description Onset Age of this Age Resolved Age Notes LastModified by Organization Details LastModified Time Maternal Grandmother Malignant tumor of breast 60 [email or web address] Not available 2024 14:02:26 Medical History Condition Response Anxiety Disorder Y Thyroid Problems N High Cholesterol N Depression/ depression N Gynecological History Statement/Question Response Date of Last Mammogram 10/09/2024 Date of Last Colonoscopy 05/12/2024 Date of LMP 06/11/2005 Date of Last Pap Smear 09/06/2024 Current Control Method Other Approximate Hormone Replacement Therapy Yes Obstetrics History GPAL:G 0 P 0 0 0 0 Past Encounters Encounter ID Performer Location Encounter Start Date Encounter Closed Date Diagnosis/Indication Diagnosis SNOMED-CT Code Diagnosis ICD10 Code Diagnosis Note [id number] ALISA KIRBY APRN Main Office [address] [place] [address] 12/01/2024 13:09:04 12/02/2024 04:22:50 Menopausal symptom 58449893 N95.1 - Patient is symptomati c with vaginal dryness, low libido, weight gain primarily around the midsection - Initiated transderma l estrogen patch (0.05 mg) to be applied twice weekly on the lower abdomen or buttock, removing the old patch and replacing with a new patch in a different location on the designated days.- Initiated oral progestero ne 100 mg at bedtime to reduce unopposed estrogen effects and support sleep; advised potential dose increase to 200 mg if insufficie nt improvemen t is noted on re-evaluat ion.- Prescribed vaginal estrogen cream daily for 2 weeks, then reduced applicatio n to twice weekly for ongoing symptoms of vaginal dryness and tissue thinning.- Discussed common side effects including breast tenderness , cramping, breakthrou gh bleeding, and mood changes, and advised close monitoring for any emergent symptoms such as significan t chest pain or severe unilateral leg pain.- Educated on the importance of routine mammograms given family history of breast cancer; reinforced that transderma l estrogen does not increase individual breast cancer risk.- Advised to maintain active communicat ion through the patient portal for any interim questions or concerns.- Scheduled follow-up in 4 weeks (January 02 at 2:00 PM) to assess therapy effectiven ess and consider any necessary dosage adjustment s. The patient is experienci ng significan t symptoms related to hormonal changes that impact their quality of life and ability to function profession ally and/or personally . We reviewed lifestyle modificati ons, integrativ e therapies, hormonal options as well as other medication s used to treat common menopausal symptoms. Pt was informed that, as with any drug, there are some potential risks associated with HRT. We discussed that some types of HRT may increase the risk of heart attack, stroke, and blood clots. Patient is counseled on concerning signs and symptoms and instructed to immediatel y seek care if these develop. We discussed potential health risks that may be associated with HRT including risks related to breast cancer, uterine cancer, gallbladde r disease, dementia and others. Many of these concerns are related to older types of hormones that are no longer recommende d today and some of these concerns differ depending on the component of hormones (estrogen vs progestero ne) and the mode of delivery. After review of the potential benefits of HRT, the alternativ es and the risks of therapy this patient prefers a trial of HRT. Based on this shared decision making HRT therapy will be offered. Genitourin aidan syndrome of menopause [id number] 1188353 N95.8 N95.2 - Prescribed vaginal estrogen cream daily for 2 weeks, then reduced applicatio n to twice weekly for ongoing symptoms of vaginal dryness and tissue thinning. [id number] ALISA KIRBY APRN Main Office [address] [place] [address] 12/26/2024 14:34:11 12/27/2024 04:35:05 Menopausal symptom 40742793 N95.1 - Persistent menopausal complaints without significan t improvemen t on current patch.- Increased transderma l estrogen patch from 0.05 mg to 0.075 mg for improved vasomotor symptom control.- Continued oral micronized progestero ne 1 capsule nightly for sleep; no dosing change.- Discontinu ed vaginal estrogen cream due to no improvemen t; initiated vaginal estrogen tablets (Vagifem) to address ongoing dryness.- Recommende d follow-up in 4 weeks; patient will schedule with an available provider who offers later appointmen ts. The patient is experienci ng significan t symptoms related to hormonal changes that impact their quality of life and ability to function profession ally and/or personally . We reviewed lifestyle modificati ons, integrativ e therapies, hormonal options as well as other medication s used to treat common menopausal symptoms. Pt was informed that, as with any drug, there are some potential risks associated with HRT. We discussed that some types of HRT may increase the risk of heart attack, stroke, and blood clots. Patient is counseled on concerning signs and symptoms and instructed to immediatel y seek care if these develop. We discussed potential health risks that may be associated with HRT including risks related to breast cancer, uterine cancer, gallbladde r disease, dementia and others. Many of these concerns are related to older types of hormones that are no longer recommende d today and some of these concerns differ depending on the component of hormones (estrogen vs progestero ne) and the mode of delivery. After review of the potential benefits of HRT, the alternativ es and the risks of therapy this patient prefers a trial of HRT. Based on this shared decision making HRT therapy will be offered. Health Concerns Section Related Observation LastModified by Organization Detai ls LastModified Time None Recorded Concern Status LastModified by Organization Details LastModified Time None Recorded Advance Directives Directive None Recorded Payers Insurance Date Sequence Insurance Name Policy Number Policy Tavarez Covered Member ID Tavarez Member ID Guarantor Name 12/25/2024 1 [facility] [id number] Jody Murray [id number] Jody Murray Notes Date Note Type Note Provider Name and Address Organization Details Recorded Time 12/01/2024 text/html The patient is a 49-year-old female with a history of anxiety and depression presenting for evaluation of menopausal symptoms. Menopausal Symptoms- LMP was approximately in 2004.- Reports vaginal dryness and dyspareunia.- Reports trouble sleeping, low libido, and weight gain primarily around the midsection.- Has not previously considered HRT. Family History- Maternal grandmother had breast cancer; age at diagnosis 60. She primarily had lung cancer. Current Medications and Supplements- Fluoxetine- Gabapentin Past Medical History- Anxiety Past Surgical History- Tubal ligation- Uterine ablation Social History- Denies smoking.- Consumes alcohol 3-4 times per week. Virtual Visit Attestation Modality: Video Provider Location: Home Patient Location: Home Patient [place]: [place] [address] [place], [place], , [facility] 12/05/2024 17:01:23 12/26/2024 text/html The patient is a 49-year-old female with a history of menopausal symptoms presenting for follow-up. Menopausal Symptoms- Patient reports no significant improvement in menopausal symptoms since the last visit.- Currently using an estrogen patch but may not be absorbing it well; considering increasing the dosage.- Reports persistent vaginal dryness despite using a vaginal cream.- Currently taking one progesterone pill daily and reports sleeping well. Weight Management- Weight is a concern for the patient; has not weighed herself in the last few days. Current Medications and Supplements- Estrogen patch- Progesterone pill, one daily- Vaginal cream Virtual Visit AttestationModality : VideoProvider Location: Home Patient Location: Home Patient State: ADRIAN KIRBY APRN [address] [place], [address], [facility] 12/26/2024 16:08:33 OBGyn Episode No OBEpisode recorded.
--- NOTE | 2025-01-08 09:05 | EST_ITS ---
Patient Info Name: Jody Murray Age: 49 years : 1975 Gender: Female Ht: 62 in Wt: 130 lbs BSA: 1.62 m2 Exam Date: 01/08/2025 9:05 AM Patient Status: O Admit Date: 01/08/2025 Exam Type: CA stress test treadmill A treadmill exercise stress test was performed. Staff Attending Provider: Toni Benitez DO Exercise Technologist: Amy Ccohran Exercise Physician: Toni Benitez DO Summary 1. 1. Negative Horacio exercise stress test for ischemic ST changes by ECG criteria. 2. 2. Good functional capacity, achieving 10 METs of workload. 3. 3. Appropriate HR response to exercise. 4. 4. Appropriate HR recovery at 1 minute post exercise. 5. 5. No imaging with stress testing. 6. 6. Patient informed of the above results. Protocol: Horacio Stress ECG Details Stage: REST Duration (min): 0 min : 56 sec Speed (mph): 0.0 Grade (%): 0 HR (bpm): 69 SBP (mmHg): 127 DBP (mmHg): 74 METS: --- Stage: REST Duration (min): 7 min : 0 sec Speed (mph): 0.0 Grade (%): 0 HR (bpm): 85 SBP (mmHg): 127 DBP (mmHg): 74 METS: --- Stage: STAGE 1 Duration (min): 1 min : 0 sec Speed (mph): 1.7 Grade (%): 10 HR (bpm): 108 SBP (mmHg): 127 DBP (mmHg): 74 METS: --- Stage: STAGE 1 Duration (min): 2 min : 0 sec Speed (mph): 1.7 Grade (%): 10 HR (bpm): 118 SBP (mmHg): 127 DBP (mmHg): 74 METS: --- Stage: STAGE 1 Duration (min): 3 min : 0 sec Speed (mph): 1.7 Grade (%): 10 HR (bpm): 126 SBP (mmHg): 155 DBP (mmHg): 84 METS: --- Stage: STAGE 2 Duration (min): 1 min : 0 sec Speed (mph): 2.5 Grade (%): 12 HR (bpm): 131 SBP (mmHg): 155 DBP (mmHg): 84 METS: --- Stage: STAGE 2 Duration (min): 2 min : 0 sec Speed (mph): 2.5 Grade (%): 12 HR (bpm): 137 SBP (mmHg): 153 DBP (mmHg): 82 METS: --- Stage: STAGE 2 Duration (min): 3 min : 0 sec Speed (mph): 2.5 Grade (%): 12 HR (bpm): 143 SBP (mmHg): 153 DBP (mmHg): 82 METS: --- Stage: STAGE 3 Duration (min): 1 min : 0 sec Speed (mph): 3.4 Grade (%): 14 HR (bpm): 149 SBP (mmHg): 187 DBP (mmHg): 84 METS: --- Stage: STAGE 3 Duration (min): 2 min : 0 sec Speed (mph): 3.4 Grade (%): 14 HR (bpm): 154 SBP (mmHg): 187 DBP (mmHg): 84 METS: --- Stage: STAGE 3 Duration (min): 2 min : 0 sec Speed (mph): 3.4 Grade (%): 14 HR (bpm): 154 SBP (mmHg): 187 DBP (mmHg): 84 METS: --- Stage: RECOVERY Duration (min): 0 min : 59 sec Speed (mph): 0.0 Grade (%): 0 HR (bpm): 128 SBP (mmHg): 151 DBP (mmHg): 85 METS: --- Stage: RECOVERY Duration (min): 1 min : 59 sec Speed (mph): 0.0 Grade (%): 0 HR (bpm): 91 SBP (mmHg): 151 DBP (mmHg): 85 METS: --- Stage: RECOVERY Duration (min): 2 min : 59 sec Speed (mph): 0.0 Grade (%): 0 HR (bpm): 90 SBP (mmHg): 134 DBP (mmHg): 85 METS: --- Stage: RECOVERY Duration (min): 3 min : 2 sec Speed (mph): 0.0 Grade (%): 0 HR (bpm): 88 SBP (mmHg): 134 DBP (mmHg): 85 METS: --- Rest HR: 85 bpm Peak HR: 154 bpm Rest Sys BP: 127 mmHg Peak Sys BP: 187 mmHg Max Pred HR: 169 bpm % Max Pred HR: 91 % Target HR: 144 bpm Max RPP: 28,798 bpm*mmHg Reid Score: 5 Termination Reason: Reached target heart rate or workload Cardiac Symptoms: Baseline CP 3 did not get worse with exercise Max ST Seg Deviation: 0.70 mm Total Time: 8 min : 0 sec Rest Castillo BP: 74 mmHg Peak Castillo BP: 84 mmHg Angina Score: None Total METS: 10.3 Resting ECG Sinus rhythm. Stress ECG No ST changes. Arrhythmias None. Report Signatures
== END 2025-01-08 08:56 | disposition home or self-care (01) ==
PROVIDERS: PCP Nurse Practitioner Adult Health; Visit Provider Internal Medicine Cardiovascular Disease
DX: R07.9 Chest pain, unspecified (principal)
CPT/HCPCS: 93017

== ENCOUNTER 2025-02-19 08:39 | Outpatient (CLI) | payer OTHER, SELFPAY ==
--- OUTSIDE RECORDS SUMMARY | 2025-02-19 08:45 | XMS_ITS | Data Portability ---
Author Organization [employer] [facility] in Office Address [address] [place] [address] Assessment Encounter Date Assessment Date Assessment LastModified by Organization Details LastModified Time 12/01/2024 12/01/2024 I spent 45 minutes of yesf-uq-usjo counselling and care coordination time with the patient. This includes reviewing medical records (medical, surgical, family and social history); updating medication and allergy information in the electronic health record; and ordering labs, medications, and education materials to continue patient care. [email or web address] Not available 12/01/2024 14:06:04 12/26/2024 12/26/2024 I spent 15 minutes of zwnv-xr-viii counselling and care coordination time with the patient. This includes reviewing medical records (medical, surgical, family and social history); updating medication and allergy information in the electronic health record; and ordering labs, medications, and education materials to continue patient care. [email or web address] Not available 12/26/2024 16:05:35 01/20/2025 01/20/2025 I spent 15 minutes of oggm-of-jyoz counselling and care coordination time with the patient. This includes reviewing medical records (medical, surgical, family and social history); updating medication and allergy information in the electronic health record; and ordering labs, medications, and education materials to continue patient care. [email or web address] Not available 01/20/2025 14:27:14 02/17/2025 02/17/2025 I spent 15 minutes of sipu-ih-pdiv counselling and care coordination time with the patient. This includes reviewing medical records (medical, surgical, family and social history); updating medication and allergy information in the electronic health record; and ordering labs, medications, and education materials to continue patient care. [email or web address] Not available 02/17/2025 09:15:42 Plan of Treatment Reminders Order Date Submit Date Provider Last Modified By Organization Details Last Modified Time Details Appointments [id number] 2024 07:00A Jamin KIRBY APRN Not available Not available Not available Lab None recorded. Referral None recorded. Procedures None recorded. Surgeries None recorded. [facility]24 [facility]25 [facility], [address] [facility], [facility] [address], [place], [address], 02/17/2025 10:06:57 Medication Orders estradiol 0.1 mg/24 hr semiweekl y transderm al patch 2024 025 [facility] #[id number], [address], [place], [place], [id number], 02/17/2025 10:05:21 progester one micronize d 200 mg capsule 2024 025 [facility] #[id number], [address], [place], [place], [id number], 02/17/2025 10:05:19 estradiol 0.1 mg/24 hr semiweekl y transderm al patch 2024 025 [facility] #[id number], [address], [place], [place], [id number], 01/20/2025 14:29:54 progester one micronize d 200 mg capsule 2024 025 [id number], [address], [place], [place], [id number], 01/20/2025 14:44:32 estradiol 0.075 mg/24 hr semiweekl y transderm al patch 2024 025 [facility] #[id number], [address], [place], [place], [id number], 12/26/2024 15:23:17 progester one micronize d 100 mg capsule 2024 [facility] #55295, [address], [place], [place], [id number], 12/26/2024 15:23:19 Vagifem 10 mcg vaginal tablet 2024 [facility] #65789, [address], [place], [place], [id number], 12/26/2024 15:23:16 Estrace 0.01% (0.1 mg/gram) vaginal cream 2024 [facility] #09169, [address], [place], [place], [id number], 12/26/2024 15:22:59 estradiol 0.05 mg/24 hr semiweekl y transderm al patch 2024 [facility] #[id number], [address], [place], [place], [id number], 12/01/2024 14:16:49 progester one micronize d 100 mg capsule 2024 [facility] #27453, [address], [place], [place], [id number], 12/01/2024 14:16:51 Patient TargetsNo targets recorded. Patient Instructions Encounter Date Encounter Id Patient Instructions Last Modified By Organization Details Last Modified Time 12/01/2024 [id number] Any requested follow-up visits are listed below in the Plan of Care section. Go directly to the [employer] production control scheduler at [email or web address] to book a time. [email or web address] Not available 12/01/2024 14:00:56 It was a [...] your care! Not available 12/01/2024 14:25:52 12/26/2024 [id number] Any requested follow-up visits are listed below in the Plan of Care section. Go directly to the [employer] production control scheduler at [email or web address] to book a time. [email or web address] Not available 12/26/2024 15:18:20 It was a [...] you for trusting us with your care! [email or web address] Not available 12/26/2024 16:06:45 01/20/2025 [id number] Any requested follow-up visits are listed below in the Plan of Care section. Go directly to the [employer] production control scheduler at [email or web address] to book a time. [email or web address] Not available 01/20/2025 14:22:37 It was a pleasur e to meet with you today! We discussed your health concerns related to your current medication regimen and its effectiveness. Your Care Plan Together, we decided that you would: - Increase your estradiol patch dosage to 0.1 mg, to be applied twice a week. - Switch to 200 mg capsules for your current medication, so you only have to take one capsule instead of two 100 mg capsules. - Monitor your symptoms with the new dosages and report any changes. - Schedule a follow-up appointment in four weeks to assess the effectiveness of the new dosages. This appointment is set for February 17 at 9:00 AM. - Undergo blood work if the new dosages do not provide the desired improvement. This will help determine if your body is adequately absorbing the estrogen from the patch. - Consider alternative formulations if blood work indicates inadequate absorption of estrogen. Please carefully review the care plan we have agreed upon above, which includes specific information about your medication adjustments and follow-up steps. Thank you for trusting us with your care! [email or web address] Not available 01/20/2025 14:42:27 02/17/2025 [id number] Any requested follow-up visits are listed below in the Plan of Care section. Go directly to the [employer] production control scheduler at [email or web address] to book a time. To schedule or modify your visit, access the [employer] portal here: [email or web address] Not available 02/17/2025 10:08:14 Dear Jody, It was great to see you today! Below is a summary of the plan we decided upon together: Menopausal symptom management - You are feeling more energetic on the 0.1 mg estradiol patch and 200 mg progesterone, so we will keep these doses the same. - These hormones also help protect your bones as estrogen levels decline. Bone health screening - A DEXA scan order was sent to [facility] to get an early baseline of your bone density. - Please call the center to confirm insurance coverage and schedule the scan. Sleep concerns - Recent stress has disrupted your sleep; you may try an drzo-rif-tdufyll sleep aid if needed. - We will reassess your sleep at our next appointment. Next steps - We will meet again via telehealth on March 17 at 9:00 AM. - If all remains stable, future check-ups can be spaced to every 2-3 months. If you have any questions or experience any new symptoms, please do not hesitate to reach out to our office. Sincerely, ALISA KIRBY APRN [email or web address] Not available 02/17/2025 10:08:14 Reason for Referral None Reported. Problems Name Problem SNOMED Code Status Onset Date Resolution Date Notes Provider Name and Address Organization Details Recorded Time Menopausal symptom 02529903 Active 2024 ALISA KIRBY APRN [address] [place], [address], [employer] [facility] 5 15:18:47 Genitourina ry syndrome of menopause 5926086719024 9104 Active 2024 ALISA KIRBY APRN [address] [place], [address], [employer] [facility] 5 14:09:16 Premature menopause 153518808 Active 2024 ALISA KIRBY APRN [address] [place], [address], [employer] [facility] 5 10:03:49 Problem Notes None recorded. Procedures Surgical History Date Name Laterality Status Provider Name and Address Organization Details Recorded Time Date of Last Mammogram completed ALISA KIRBY APRN [address] [place], [address], [facility] 12/01/2024 14:03:43 5 Date of Last Pap Smear completed ALISA KIRBY APRN [address] [place] [place], , [facility] 12/01/2024 14:03:43 4 Date of Last Colonoscopy completed ALISA KIRBY APRN [address] [place], , [facility] 12/01/2024 14:03:43 4 Endometrial Ablation completed ALISA KIRBY APRN [address] [place], , [facility] 12/01/2024 14:05:11 ligation of bilateral fallopian tubes completed ALISA KIRBY APRN [address] [place] [place], , [facility] 12/01/2024 14:05:20 Imaging Results None recorded. Procedure [...] 2024 active Not Available Not Available Not Avai lable azithromyci n 250 mg tablet TAKE 2 TABLETS BY MOUTH ON DAY 1 THEN TAKE 1 TABLET BY MOUTH DAILY FOR FOR 4 MORE DAYS active Not Available Not Available No t Available estradiol 0.1 mg/24 hr semiweekly transdermal patch Apply 1 patch twice a week by transderm al route. 2024 active Not Available Not Available Not Avai lable estradiol 0.05 mg/24 hr semiweekly transdermal patch APPLY 1 PATCH TOPICALLY TO THE SKIN 2 TIMES A WEEK active Not Available Not Available No t Available progesteron e micronized 200 mg capsule Take 1 capsule every day by oral route for 28 days. 2024 active Not Available Not Available Not Avai lable gabapentin 100 mg capsule TAKE 1 CAPSULE [...] 2024 active Not Available Not Available Not Avai lable amoxicillin 500 mg-potassiu m clavulanate 125 mg [...] Updated DateTime 12/01/2024 157.48 cm 22.9 kg/m2 68340.05 g ALISA KIRBY, CYTOLOGY MANAGER [address] [facility] [place] [address], [facility] 12/01/2024 14:03:57 Date Recorded Body height Body mass index (BMI) Body weight Provider Name and Address Organization Details Last Updated DateTime 12/26/2024 157.48 cm 22.9 kg/m2 55812.05 g ALISA KIRBY CYTOLOGY MANAGER [address] [place], [place], , [facility] 12/26/2024 15:19:01 Date Recorded Body height Body mass index (BMI) Body weight Provider Name and Address Organization Details Last Updated DateTime 01/20/2025 157.48 cm 22.9 kg/m2 88551.05 g ALISA KIRBY CYTOLOGY MANAGER [address] [place], [address], [facility] 01/20/2025 14:29:58 Date Recorded Body weight Body mass index (BMI) Body height Provider Name and Address Organization Details Last Updated DateTime 02/17/2025 57858.05 g 22.9 kg/m2 157.48 cm ALISA KIRBY APRN [address] [place], [address], [place] [facility] 02/17/2025 10:00:07 Social History None recorded. Functional Status Question Answer Note LastModified by Organizat ion Details LastModified Time How many times per week do you consume alcohol? 3-4 times per week [email or web address] Information not available 12/01/2024 What is your level of alcohol consumption? Occasional [email or web address] Information not available 12/01/2024 Mental Status None recorded. Family History Relationship Description Onset Age of this Age Resolved Age Notes LastModified by Organization Details LastModified Time Maternal Grandmother Malignant tumor of breast 60 Not available 2024 14:02:26 Medical History Condition [...] SNOMED-CT Code Diagnosis ICD10 Code Diagnosis Note [id number] ALISA KIRBY APRN Main Office [address] [place] [address] 12/01/2024 13:09:04 12/02/2024 04:22:50 Menopausal symptom 81270917 N95.1 - Patient is symptomati c with [...] be offered. Genitourin aidan syndrome of menopause 8313517799 7120985 N95.8 N95.2 - Prescribed vaginal estrogen cream daily for 2 weeks, then reduced applicatio n to twice weekly for ongoing symptoms of vaginal dryness and tissue thinning. [id number] ALISA KIRBY APRN Main Office [address] [place] [address] 12/26/2024 14:34:11 12/27/2024 04:35:05 Menopausal symptom 64690746 N95.1 - Persistent menopausal complaints without significan [...] decision making HRT therapy will be offered. [id number] ALISA KIRBY APRN Main Office [address] [place] [address] 01/20/2025 13:58:51 01/21/2025 04:45:55 Menopausal symptom 25456238 N95.1 - Symptoms have shown partial improvemen t with prior regimen.- Changed progestero ne regimen to one 200 mg capsule by mouth nightly instead of two 100 mg capsules.- Increased transderma l estradiol to 0.1 mg patch applied twice weekly.- If symptoms remain uncontroll ed, will obtain blood work to evaluate estradiol levels and consider alternativ e formulatio ns.- Scheduled follow-up in four weeks on February 17 at 9:00 AM to reassess response and overall symptom management . The patient is experienci ng significan t [...] decision making HRT therapy will be offered. [id number] ALISA KIRBY APRN Main Office [address] [place] [address] 02/17/2025 09:19:23 02/18/2025 04:45:09 Menopausal symptom 13780797 N95.1 - Diagnosis: Menopausal and female climacteri c states- Assessment : Responding well to estradiol 0.1 mg and progestero ne 200 mg nightly.- Plan: Discussed continuing current HRT dose; reviewed benefits for symptom relief and bone protection , potential risks of HRT.- Ordered diagnostic tests: DEXA bone density scan at [facility]; patient to verify insurance coverage.- Medication s supplement s: Continue estradiol transderma l patch 0.1 mg as currently used; continue progestero ne 200 mg orally nightly.- Follow up: Telehealth visit scheduled 03-17-2025 at 09:00 AM; thereafter consider 2-3-month intervals if stable. The patient is experienci ng significan t [...] decision making HRT therapy will be offered. Screening for osteoporosis 536983742 Z13.820 undefined - Diagnosis: Encounter for screening for osteoporos is - Assessment : Early baseline bone health assessment due to perimenopa usal status. - Plan: Discussed value of early screening; patient agreed to proceed if covered. - Ordered diagnostic tests: Same DEXA order as above. - Follow up: Review DEXA results at next visit. Health Concerns Section Related Observation LastModified by Organization Detai ls LastModified Time None Recorded Concern Status LastModified by Organization Details LastModified Time None Recorded Advance Directives Directive None Recorded Payers Insurance Date Sequence Insurance Name Policy Number Policy Tavarez Covered Member ID Tavarez Member ID Guarantor Name 02/14/2025 1 [facility] [id number] Jody Murray [id number] Jody Murray Notes Date Note Type Note [...] Location: Home Patient [place]: [place] [address] [place], [address], [facility] [employer] [facility] 12/05/2024 17:01:23 12/26/2024 text/html The patient is [...] pill, one daily- Vaginal cream Virtual Visit AttestationModality: VideoProvider Location: Home Patient Location: [place] Patient State: [place] ALISA KIRBY APRN [address] [place], [address], [facility] 12/26/2024 16:08:33 01/20/2025 text/html The patient is a 49-year-old female with a history of menopausal symptoms presenting for follow-up. Menopausal Symptoms- Reports some improvement in menopausal symptoms following a recent increase in estradiol patch dosage.- Currently using a 0.075 mg estradiol patch twice a week.- Experiencing sleep disturbances; currently taking two 100 mg progesterone capsules at night. Current Medications and Supplements- Estradiol patch 0.075 mg, applied twice a week.- Progesterone 100 mg, two capsules at night. Past Medical History- Menopausal symptoms. Virtual Visit Attestation Modality: Video Provider Location: Home Patient Location: Home Patient State: ADRIAN KIRBY APRN [address] [place], [address], [facility] 01/20/2025 14:45:04 02/17/2025 text/html Virtual Visit AttestationModality: VideoProvider Location: Home Patient Location: Home Patient State: [place] Chief complaint: Follow up for hormone replacement therapy dosage and symptom control. History of present illness hpi: Female presenting with perimenopausal symptom management follow up. Hormone replacement therapy adjustment - Four weeks ago estradiol transdermal dose was increased to 0.1 mg; patient reports marked improvement in energy levels. - Current weight remains 125 lb. - Sleep generally good; past two nights disrupted due to recent of a child s friend and moving daughter to a new apartment, resulting in situational stress. - Denies known family history of osteoporosis. Sleep disturbance - Reports two consecutive nights of poor sleep attributed to acute emotional stress. - No chronic insomnia symptoms described prior to recent events. Screening history: Baseline bone density (DEXA) scan: none to date. Current medications: Estradiol transdermal patch 0.1 mg applied per usual schedule Progesterone 200 mg orally nightly Vital signs: Weight 125 lb ALISA KIRBY, CYTOLOGY MANAGER [address] [place], [address], [facility] 02/17/2025 11:08:55 OBGyn Episode No OBEpisode recorded.
--- OUTSIDE RECORDS SUMMARY | 2025-02-19 08:46 | XMS_ITS | Encounter Summary ---
Author Organization [facility] Address [address] [place] [address] Care Team Providers Care Discharge Door Operator Name Role Phone Robert Holt MD Primary Care Provider [phone] Encounter Details Date Type Department Care Team (Late st Contact Info) Description 11/29/2022 iDiDiD Message Enc [facility] - [address] [address] [address] [place] [address] 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
--- OUTSIDE RECORDS SUMMARY | 2025-02-19 08:46 | XMS_ITS | Clinical Summary ---
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 Gender Identity Not on file Sexual Orientation Not on file Last Filed Vital Signs Vital Sign Reading Time Taken Comments Blood Pressure 109/70 02/01/2023 2:11 PM CDT Pulse 75 02/01/2023 2:11 PM CDT Temperature 36.7 C (98 F) 02/01/2023 2:11 PM CDT Respiratory Rate 20 02/01/2023 2:11 PM CDT Oxygen Saturation 98% 02/01/2023 2:11 PM CDT Inhaled Oxygen Concentration - - Weight 61.2 kg (135 lb) 02/01/2023 2:11 PM CDT Height 157.5 cm (5' 2) 02/01/2023 2:11 PM CDT Body Mass Index [...] 2 - Td or Tdap) 12/19/2022 12/19/2012 Pneumococcal Vaccine: 50+ Years (1 of 1 - PCV) 2023 Zoster Vaccines (1 of 2) 2023 Annual Physical 11/28/2023 11/27/2022 COVID-19 Vaccine (2023-2 5 season) 2024 10/13/2020, 09/15/2020 Colorectal Cancer Screening FIT-DNA (3 Years) 12/31/2025 [...] this topic Medical Devices Implanted Type Area Vegetable Inspector Device Identifier Shelf Expiration Date Model / Serial / Lot Mesh Ventralex Small With Strap [id number] - [id number] Implanted:Qty : 1 on 12/07/2022 by Phani Arrieta MD at [facility] Mesh N/A: Abdomen [employer] - DIV C [employer] [id number] 06/09/2023 [id number] / / [id number] Procedures Procedure Name Priority Date/Time Associated Diagnosis [...] 3:10 PM CDT) COLOGUARD RESULT Negative Negative [employer] (CLIA #:[id number]) Comment: NEGATIVE TEST RESULT. A negative Cologuard result indicates a low likelihood that a colorectal cancer (CRC) or advanced adenoma (adenomatous polyps with more advanced pre-malignant features) is present. The chance that a person with a negative Cologuard test has a colorectal cancer is less than 1 in 1500 (negative predictive value >99.9%) or has an advanced adenoma is less than 5.3% (negative predictive value 94.7%). These data are based on a prospective cross-sectional study of 10,000 individuals at average risk for colorectal cancer who were screened with both Cologuard and colonoscopy. (Chava Sandhu et al, N Engl J Med 2014;370(14):3297-0080) The normal value (reference range) for this assay is negative. COLOGUARD RE-SCREENING RECOMMENDATION: Periodic colorectal cancer screening is an important part of preventive healthcare for asymptomatic individuals at average risk for colorectal cancer. Following a negative Cologuard result, the [place] Cancer Society and U.S. Multi-Society Task Force screening guidelines recommend a Cologuard re-screening interval of 3 years. References: [place] Cancer Society Guideline for Colorectal Cancer Screening: https://www.cancer.org/cancer/yavcn-zdblmi-hvaubf/ehgnhthov-jbhtmiwrs-jtrxwwo/ac s-rec ommendations.html.; Aries VERNON, Jocelynn MIRANDA, Carlos MEHTA, Colorectal Cancer Screening: Recommendations for Physicians and Patients from the U.S. Multi-Society Task Force on Colorectal Cancer Screening , Am J Gastroenterology 2017; 112:9824-7522. TEST DESCRIPTION: Composite algorithmic analysis of stool DNA-biomarkers with hemoglobin immunoassay. Quantitative values of individual biomarkers are not [...] screened with both Cologuard and colonoscopy. (Chava Bland. et al, N Engl J Med 2014;370(14):4628-1772.) Cologuard may produce a false negative or false positive result (no colorectal cancer or precancerous polyp present at colonoscopy follow up). A negative Cologuard test result does not guarantee the absence of CRC or advanced adenoma (pre-cancer). The current Cologuard screening interval is every 3 years. ([place] Cancer Society and U.S. Multi-Society Task Force). Cologuard performance data in a 10,000 patient pivotal study using colonoscopy as the reference method can be accessed at the following location: www.[employer] [facility]/results. Additional description of the Cologuard test process, warnings and precautions can be found at www.[employer]starter[employer]Transit Apprd.ShopRunner. STOOL STOOL SPECIMEN / Unknown 12/31/2022 3:10 PM CDT 01/02/2023 3:42 PM CDT Robert Holt MD BODY FLUIDS AND STOOLS ORDERABLE S Final Result [employer], [employer] [address] [place] [address], [place] [phone] [employer] (CLIA #:[id number]) [address] [place] [address] * HEPATITIS C ANTIBODY (11/27/2022 7:48 AM CDT) HEPATITIS C AB NON-REACTI VE NON-REACT ZEYAD 11/27/2022 7:00 PM CDT [facility] Comment: ANTIBODIES TO HCV NOT DETECTED. DOES NOT EXCLUDE THE POSSIBILITY OF EXPOSURE TO HCV. 11/27/2022 7:48 AM CDT Robert Holt MD LABORATORY Final Result Performing Organization Address City/[facility]/ZIP Co de Phone Number [facility] [address] [place] [address], [id number] from Last 3 Months or Most Recently Relevant to Health Maintenance Insurance [facility] Care Teams Operator Ground Based Air Defence Relationship Specialty Start Date End Date Robert Holt MD [address] [facility] [address] [place] [address] PCP - General INTERNAL MEDICINE 09/26/22
--- OUTSIDE RECORDS SUMMARY | 2025-02-19 08:46 | XMS_ITS | Encounter Summary ---
Author Organization [facility] Address [address] [place] [address] Care Team Providers Care Decision Science Analyst Name Role Phone Robert Holt MD Primary Care Provider [phone] Encounter Details Date Type Department Care Team (Late st Contact Info) Description 11/27/[address] 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 No / Unsure 11/28/2022 3:05 PM CDT documented as of this encounter Functional Status * Over the past 2 weeks, how often have you been bothered by any of the following problems? Question Answer Date of Assessment Author Status Little interest or pleasure in doing things Not at all 11/27/2022 7:25 AM CDT Tana Cortez MA Active Feeling down, depressed, or hopeless Not at all 11/27/2022 7:25 AM CDT Caryn Cortez MA Active Patient Health Questionnaire-2 Score 0 11/27/2022 7:25 AM CDT Stacy Cortez MA Active * If you checked off any problems on this questionnaire so far, Question Answer Date of Assessment Author Status How difficult have these problems made it for you to do your work, take care of things at home, or get along with other people? Not difficult at all 11/27/2022 7:25 AM CDT Tana Cortez MA Active documented as of this encounter Plan of Treatment Not on file documented as of this encounter Results * MRSA SCREENING (11/28/2022 3:37 PM CDT) SPEC DESCRIPTION NASAL 11/28/2022 3:09 PM CDT [facility] SPECIAL REQUESTS NO SPECIAL REQUEST 11/28/2022 3:09 PM CDT [facility] CULTURE RESULT NO MRSA ISOLATED 11/29/2022 4:05 PM CDT [facility] SPECIMEN FROM INTERNAL NOSE / Unknown 11/28/2022 3:37 PM CDT 11/28/2022 3:38 PM CDT Phani Arrieta MD MICROBIOLOGY - GENERAL ORDERABLE S Final Result Performing Organization Address City/State/[facility] de Phone Number [facility] [address] [place] [address], documented in this encounter Visit Diagnoses Diagnosis Preop testing- Primary Preoperative examination, unspecified documented in this encounter Care Teams Decision Science Analyst Relationship Specialty Start Date End Date Robert Holt MD [address] [facility] [address] [place] [address] PCP - General INTERNAL MEDICINE 09/26/22 documented as of this encounter
[2025-02-19 19:27] LABS: Alanine Aminotransferase 17 U/L (6-35); Albumin Level 4.4 g/dL (3.5-5.1); Alkaline Phosphatase 78 U/L (38-126); Anion Gap 6 mmol/L (4-12); Aspartate Amino Transferase 51 U/L (14-36); Bilirubin,Total 0.5 mg/dL (0.2-1.3); Blood Urea Nitrogen 12 mg/dL (7-17); Calcium 9.0 mg/dL (8.4-10.2); Carbon Dioxide 29 mmol/L (22-30); Chloride 104 mmol/L (98-107); Cholesterol 268 mg/dL (0-200); Estimated Glomerular Filt Rate > 60; Glucose 82 mg/dL (65-110); HDL Direct 49 mg/dL; Potassium 3.7 mmol/L (3.4-5.0); Sodium 139 mmol/L (137-145); Total Protein 7.7 g/dL (6.3-8.2); Triglycerides 137 mg/dL (<150)
== END 2025-02-19 08:40 | disposition home or self-care (01) ==
LOC: ANHBWCLAB 08:40
PROVIDERS: PCP Nurse Practitioner Adult Health; Visit Provider Nurse Practitioner Adult Health
DX: E78.5 Hyperlipidemia, unspecified (principal)
CPT/HCPCS: 36415; 80053; 80061

== ENCOUNTER 2025-03-26 08:51 | Outpatient (CLI) | payer OTHER, SELFPAY ==
--- OUTSIDE RECORDS SUMMARY | 2025-03-26 09:02 | XMS_ITS | Encounter Summary ---
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 Gender Identity Not on file Sexual Orientation [...] SPEC DESCRIPTION NASAL 11/28/2022 3:09 PM CDT [facility] SPECIAL REQUESTS NO SPECIAL REQUEST 11/28/2022 3:09 PM CDT [facility] CULTURE RESULT NO MRSA ISOLATED 11/29/2022 4:05 PM CDT [facility] SPECIMEN FROM INTERNAL NOSE / Unknown 11/28/2022 3:37 PM CDT 11/28/2022 3:38 PM CDT Phani Arrieta MD MICROBIOLOGY - GENERAL ORDERABLE S Final Result Performing Organization Address City/State/[facility] de Phone Number [facility] [address] [place] [address], documented in this encounter Visit Diagnoses Diagnosis Preop testing- Primary Preoperative examination, unspecified documented in this encounter Care Teams Form Maker Plaster Relationship Specialty Start Date End Date Robert Holt MD [address] [facility] [address] [place] [address] PCP - General INTERNAL MEDICINE 09/26/22 documented as of this encounter
--- OUTSIDE RECORDS SUMMARY | 2025-03-26 09:02 | XMS_ITS | Encounter Summary ---
Author Organization 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
[2025-03-26 18:48] LABS: Alanine Aminotransferase 20 U/L (6-35); Albumin Level 4.4 g/dL (3.5-5.1); Alkaline Phosphatase 95 U/L (38-126); Aspartate Amino Transferase 48 U/L (14-36); Bilirubin,Total 0.6 mg/dL (0.2-1.3); Cholesterol 180 mg/dL (0-200); HDL Direct 46 mg/dL; Total Protein 7.3 g/dL (6.3-8.2); Triglycerides 125 mg/dL (<150)
== END 2025-03-26 08:52 | disposition home or self-care (01) ==
LOC: ANHBWCLAB 08:52
PROVIDERS: PCP Nurse Practitioner Adult Health; Visit Provider Nurse Practitioner Adult Health
DX: E78.5 Hyperlipidemia, unspecified (principal)
CPT/HCPCS: 36415; 80061; 80076

== ENCOUNTER 2025-04-15 13:53 | Outpatient (CLI) | payer OTHER, SELFPAY ==
--- NOTE | ~2025-04-15 | MMUS_ITS ---
EXAMINATION: US breast LT limited, MM diagnostic jaret BI w radha HISTORY: Six-month follow-up left breast TECHNIQUE: Bilateral craniocaudal, mediolateral oblique and mediolateral and spot compression images of the left breast full field digital images were obtained. 3-D tomosynthesis were also obtained and synthetic 2-D images were generated. CAD analysis was submitted and interpreted. High resolution [left breast ultrasound was performed of the left breast at the 1, 7 and 9:00 positions.] ] COMPARISON: Mammograms from 03/06/2024, 02/18/2024 and 11/21/2022; left breast ultrasound 09/10/2024 and 03/06/2024 BREAST PARENCHYMAL COMPOSITION: The breasts are extremely dense which lowers sensitivity of mammography. FINDINGS: MAMMOGRAPHIC FINDINGS: No suspicious calcifications or architectural distortion.No new dominant mass. ULTRASOUND: Interval increase in the size of the probable mildly complicated cyst in the left breast at the 1:00 position 3 cm from the nipple. The finding is wider than tall. Margins are well-circumscribed. No internal color Doppler flow. No posterior acoustic shadowing. The finding currently measures 8 x 8 x 6 mm, previously measured 3 x 4 x 3 mm on 09/10/2024. The finding is probably benign. There is a 6 x 8 x 5 mm mildly complicated cyst in the left breast at the 1:00 position 2 cm from the nipple. There is a 9 x 10 x 5 mm hypoechoic cyst versus solid mass in the left breast 1:00 position 3 cm from the nipple middle depth. The finding is wider than tall. Large well-circumscribed. No internal color Doppler flow. No posterior acoustic shadowing. The finding is probably benign. IMPRESSION/RECOMMENDATION: 1. Probably benign findings in the left breast. A diagnostic left breast ultrasound in 3 months is recommended. 2. No mammographic evidence for malignancy. BI-RADS 3-Probably Benign. Reviewed, dictated and finalized at location Q. IMPRESSION/RECOMMENDATION: 1. Probably benign findings in the left breast. A diagnostic left breast ultras ound in 3 months is recommended. 2. No mammographic evidence for malignancy. BI-RADS 3-Probably Benign. IMPRESSION/RECOMMENDATION: 1. Probably benign findings in the left breast. A diagnostic left breast ultras ound in 3 months is recommended. 2. No mammographic evidence for malignancy. BI-RADS 3-Probably Benign.
--- OUTSIDE RECORDS SUMMARY | 2025-04-15 15:13 | XMS_ITS | Clinical Summary ---
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 Gender Identity Not on file Sexual Orientation [...] this topic Medical Devices Implanted Type Area Educational Programming Director Device Identifier Shelf Expiration Date Model / Serial / Lot Mesh Ventralex Small With Strap [id number] - [id number] Implanted:Qty : 1 on 12/07/2022 by Phani Arrieta MD at [facility] Mesh N/A: Abdomen [employer] - [employer] [id number] 06/09/2023 [id number] / / [id number] Procedures Procedure Name Priority Date/Time Associated Diagnosis [...] 3:10 PM CDT) COLOGUARD RESULT Negative Negative [employer] (CLIA #:[id number]) Comment: NEGATIVE TEST RESULT. A negative Cologuard [...] Sandhu et al, N Engl J Med 2014;370(14):0241-6013) The normal value (reference range) for this assay is negative. COLOGUARD RE-SCREENING RECOMMENDATION: Periodic colorectal cancer screening is an important part of preventive healthcare for asymptomatic individuals at average risk for colorectal cancer. Following a negative Cologuard result, the [place] Cancer Society and U.S. Multi-Society Task Force screening guidelines recommend a Cologuard re-screening interval of 3 years. References: [place] Cancer Society Guideline for Colorectal Cancer Screening: https://www.cancer.org/cancer/bbkjd-fgyxgd-gictok/gqjzevean-efpyuhcqd-rvsmtcp/ac s-rec ommendations.html.; Aries VERNON, Jocelynn MIRANDA, Carlos MEHTA, Colorectal Cancer Screening: Recommendations for Physicians and Patients from the U.S. Multi-Society Task Force on Colorectal Cancer Screening , Am J Gastroenterology 2017; 112:9417-4106. TEST DESCRIPTION: Composite algorithmic analysis of stool [...] Bland. et al, N Engl J Med 2014;370(14):4897-6364.) Cologuard may produce a false negative or false positive result (no colorectal cancer or precancerous polyp present at colonoscopy follow up). A negative Cologuard test result does not guarantee the absence of CRC or advanced adenoma (pre-cancer). The current Cologuard screening interval is every 3 years. ([place] Cancer Society and U.S. Multi-Society Task Force). Cologuard performance data in a 10,000 patient pivotal study using colonoscopy as the reference method can be accessed at the following location: www.[employer]/results. Additional description of the Cologuard test process, warnings and precautions can be found at www.DNART LIMITADAogUbersenserd.KissMyAds. STOOL STOOL SPECIMEN / Unknown 12/31/2022 3:10 PM CDT 01/02/2023 3:42 PM CDT Robert Holt MD BODY FLUIDS AND STOOLS ORDERABLE S Final Result [employer], [employer] [address] [place] [address], [place] [phone] [employer] (CLIA #:[id number]) [address] [place] [address] * HEPATITIS C ANTIBODY (11/27/2022 7:48 AM CDT) HEPATITIS C AB NON-REACTI VE NON-REACT ZEYAD 11/27/2022 7:00 PM CDT [facility] Comment: ANTIBODIES TO HCV NOT DETECTED. DOES NOT EXCLUDE THE POSSIBILITY OF EXPOSURE TO HCV. 11/27/2022 7:48 AM CDT Robert Holt MD LABORATORY Final Result Performing Organization Address City/[facility]/ZIP Co de Phone Number [facility] [address] [place] [address], [phone] from Last 3 Months or Most Recently Relevant to Health Maintenance Insurance [facility] Care Teams Corrections Identification Technician Relationship Specialty Start Date End Date Robert Holt MD [address] [facility] [address] [place] [address] PCP - General INTERNAL MEDICINE 09/26/22
--- OUTSIDE RECORDS SUMMARY | 2025-04-15 15:13 | XMS_ITS | Encounter Summary ---
Author Organization [facility] Address [address] [place] [address] Care Team Providers Care Graduate Civil Engineer Name Role Phone Robert Holt MD Primary Care Provider [phone] Encounter Details Date Type Department Care Team (Late st Contact Info) Description 11/27/2022 Prep for Procedure [facility] One Day Services [id number] [place] [address] [place] [address] [facility] [address] [place] [address] Social History Tobacco Use Types [...] on file 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 Gender Identity Not on file [...] SPEC DESCRIPTION NASAL 11/28/2022 3:09 PM CDT [facility] SPECIAL REQUESTS NO SPECIAL REQUEST 11/28/2022 3:09 PM CDT [facility] CULTURE RESULT NO MRSA ISOLATED 11/29/2022 4:05 PM CDT [facility] SPECIMEN FROM INTERNAL NOSE / Unknown 11/28/2022 3:37 PM CDT 11/28/2022 3:38 PM CDT Phani Arrieta MD MICROBIOLOGY - GENERAL ORDERABLE S Final Result Performing Organization Address City/State/[facility] de Phone Number [facility] [address] [place] [address], documented in this encounter Visit Diagnoses Diagnosis Preop testing- Primary Preoperative examination, unspecified documented in this encounter Care Teams Graduate Civil Engineer Relationship Specialty Start Date End Date Robert Holt MD [address] [facility] [address] [place] [address] PCP - General INTERNAL MEDICINE 09/26/22 documented as of this encounter
--- OUTSIDE RECORDS SUMMARY | 2025-04-15 15:13 | XMS_ITS | Encounter Summary ---
Author Organization [facility] Address [address] [place] [address] Care Team Providers Care Senior Dentist Name Role Phone Robert Holt MD Primary Care Provider [phone] Encounter Details Date Type Department Care Team (Late st Contact Info) Description 11/29/2022 [employer] Message Enc [facility] Medical Group Multispecialty Care - [place] [address] [address] [place] [address] [facility], [facility] Provider Lab results Social History [...] on file 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
== END 2025-04-15 13:54 | disposition home or self-care (01) ==
LOC: ANHFOHIMG 13:55
PROVIDERS: PCP Obstetrics & Gynecology; Visit Provider Obstetrics & Gynecology
DX: R92.8 Other abnormal and inconclusive findings on diagnostic imaging of breast (principal)
CPT/HCPCS: 76642; 77062; 77066; G0279

== ENCOUNTER 2025-07-22 13:33 | Outpatient (CLI) | payer OTHER, SELFPAY ==
--- NOTE | ~2025-07-22 | US_ITS ---
PROCEDURE(S): US breast LT limited INDICATION(S): Follow-up COMPARISON(S): April 15 TECHNIQUE: Grayscale and color Doppler imaging. FINDINGS: At 1:00, there is a circumscribed hypoechoic structure with a maximum dimension of 8 mm, unchanged. It contains some low-level echoes. This is unchanged. There is a septated cyst at 1:00, which is also unchanged. The structure at 9:00 is consistent with a simple cyst, approximately unchanged. IMPRESSION: Benign findings as described. The patient may return to screening mammography as per ACR guidelines. BI-RADS 2 - Benign. Reviewed, dictated and finalized at location C. LYST OPERATOR IMPRESSION: Benign findings as described. The patient may return to screening mammography a s per ACR guidelines. BI-RADS 2 - Benign.
== END 2025-07-22 13:34 | disposition home or self-care (01) ==
LOC: ANHFOHIMG 13:34
PROVIDERS: PCP Nurse Practitioner Adult Health; Visit Provider Obstetrics & Gynecology
DX: R92.8 Other abnormal and inconclusive findings on diagnostic imaging of breast (principal)
CPT/HCPCS: 76642